=== PATIENT | female | born 1950 ===

== ENCOUNTER 2022-06-27 13:04 | Outpatient (CLI) | payer OTHER | END 2022-06-27 13:16 | disposition home or self-care (01) | LOC: RAD 13:04 | PROVIDERS: ATTEND Orthopaedic Surgery | DX: L97.324 Non-pressure chronic ulcer of left ankle with necrosis of bone (principal); M79.672 Pain in left foot ==

== ENCOUNTER 2022-07-01 10:08 | Inpatient (IN) | payer OTHER ==
[~2022-07-01] VITALS: Ht 167.6 cm; Wt 68.0 kg
--- NOTE | 2022-07-01 10:27 | NUR ---
SE RECIBE PTE ALERTA Y ORIENTADA X3,LA CUAL REFIERE HABERSE FRACTURADO EL TOBILLO JOHN HACEN 3 MESES,REFIERE QUE LA REFIERE EL DR.COLLAZO VELASQUEZ,REFIERE QUE LE VAN ANPUTAR EL PIE POR LA FRACTURA YA QUE LO TIENE NICKI ES DIABETICA Y TIENE NEUROPATIA.
[2022-07-01] MEDS ORDERED: ENTRESTO 49 MG1 EACH PO (10:29)
[2022-07-01] MEDS ORDERED: PEPCID AC20 MG PO (10:30)
[2022-07-01] MEDS ORDERED: ELIQUIS5 MG PO (10:30)
[2022-07-01] MEDS ORDERED: HORIZANT300 MG PO (10:30)
[2022-07-01] MEDS ORDERED: HYDRALAZINE HCL25 MG PO (10:30)
--- NOTE | 2022-07-01 11:50 | NUR ---
PACIENTE EVALUADA POR EL A QUIEN ORDENA TRATAMIENTO MEDICO. SE ORIENTA PACIENTE SOBRE EL MISMO ESTA REFIERE ENTENDER.RN VILLA REALIZA MUESTRAS BAJO MEDIDAS ASEPTICAS.
--- NOTE | 2022-07-01 15:14 | NUR ---
PTE ALERTA Y ORIENTADA X3 EN CAMA #09 EN POSICION MAS BAJA CON BARANDAS ELEVADAS Y DIXON DE IDENTIFICACION POR SEGURIDAD. PTE CON H/L PATENTE AL MOMENTO. PTE PENDIENTE A CONSULTA CON HONG MEJIA.
== END 2022-07-16 10:35 | disposition expired | DRG 907 ==
LOC: ER 10:08 → SURH 21:21 → MEDI 07-03 17:10 → SURH 07-04 08:47 → O/R 07-04 15:31 → SURH 07-04 15:38
PROVIDERS: Specialist; ADMIT Internal Medicine; ATTEND Internal Medicine
PROC: B246ZZZ Ultrasonography of Right and Left Heart (ICD-10-PCS; 2022-07-02)
PROC: 30233N1 Transfusion of Nonautologous Red Blood Cells into Peripheral Vein, Percutaneous Approach (ICD-10-PCS; 2022-07-02)
PROC: 0Y6J0Z3 Detachment at Left Lower Leg, Low, Open Approach (ICD-10-PCS; principal; 2022-07-04 14:00)
PROC: CB221ZZ Tomographic (Tomo) Nuclear Medicine Imaging of Lungs and Bronchi using Technetium 99m (Tc-99m) (ICD-10-PCS; 2022-07-11)
DX: T79.8XXA Other early complications of trauma, initial encounter (principal); J96.01 Acute respiratory failure with hypoxia; E11.52 Type 2 diabetes mellitus with diabetic peripheral angiopathy with gangrene; I96 Gangrene, not elsewhere classified; L97.328 Non-pressure chronic ulcer of left ankle with other specified severity; I13.0 Hypertensive heart and chronic kidney disease with heart failure and stage 1 through stage 4 chronic kidney disease, or unspecified chronic kidney disease; D62 Acute posthemorrhagic anemia; J91.8 Pleural effusion in other conditions classified elsewhere; J95.89 Other postprocedural complications and disorders of respiratory system, not elsewhere classified; L08.89 Other specified local infections of the skin and subcutaneous tissue; E11.622 Type 2 diabetes mellitus with other skin ulcer; E11.22 Type 2 diabetes mellitus with diabetic chronic kidney disease; E11.40 Type 2 diabetes mellitus with diabetic neuropathy, unspecified; N18.30 Chronic kidney disease, stage 3 unspecified; I50.9 Heart failure, unspecified; Z79.4 Long term (current) use of insulin; D63.1 Anemia in chronic kidney disease; D63.8 Anemia in other chronic diseases classified elsewhere; E11.65 Type 2 diabetes mellitus with hyperglycemia; E87.8 Other disorders of electrolyte and fluid balance, not elsewhere classified